=== PATIENT | female | born 1990 | race Asian ===

== ENCOUNTER → 2017-09-07 | Outpatient (CLI) | payer OTHER ==
--- NOTE | 2017-09-07 13:16 | Diagnostic Imaging Report ---
PROCEDURE: X-RAY CHEST, TWO VIEWS COMPARISON: None. INDICATIONS: WHEEZING, PRESSURE ON LEFT UPPER LUNG PER PATIENT FINDINGS: LUNGS: No evidence of pulmonary hyperinflation. No mass or infiltrate. Vascular markings are normal. PLEURA: No effusions or pneumothorax. HEART \T\ MEDIASTINUM: The heart is within normal size-limits. BONES \T\ SOFT TISSUES: Mild scoliosis of the lower thoracic spine with a rotational component. No focal osseous lesions. Soft tissues are unremarkable. CONCLUSION: No evidence of pulmonary hyperinflation or pneumothorax. No acute pulmonary process. Dictated by: Remy Monte M.D. on 09/07/2017 at 13:22 Electronically approved by: Remy Monte M.D. on 09/07/2017 at 13:22
== END ==
LOC: RAD 12:24
PROVIDERS: ATTEND Internal Medicine
DX: R06.2 Wheezing (principal)
CPT/HCPCS: 71046